=== PATIENT | male | born 1970 | race African-American/Black ===

== ENCOUNTER 2023-04-29 12:49 | Emergency (ER) | payer MEDICARE, SELFPAY ==
[2023-04-29 13:05] VITALS: BP 127/96; PULSE 69; RESP 18; TEMP 36.9; O2SAT 100
[2023-04-29 13:47] LABS: Appearance Urine Cloudy (Clear); Bacteria Urine None Seen /hpf; Bilirubin Urine Negative (Negative); Blood Urine 1+ (Negative); Color Urine Yellow (Yellow); Glucose Urine UA Negative (Negative); Ketones Urine Negative (Negative); Leukocyte Esterase Ur 2+ LEU/UL (Negative); Nitrate Urine Negative (Negative); Non Pathogenic Casts 0-2; Protein Urine Trace mg/dL (Negative); Specific Grav Ur 1.025 (1.001-1.035); Squamous Epithelial Cell Urine None seen /hpf (Few); Urobilinogen Urine 0.2 mg/dL (<2.0); WBC Urine >100 /hpf; pH Urine 5.5 (5.0-9.0)
[2023-04-29 13:54] LABS: Add Urine Microscopic? YES
[2023-04-29 15:14] LABS: Chlamydia trachomatis NOT DETECTED (NOT DETECTE); Neisseria gonorrhoeae PCR DETECTED (NOT DETECTE)
--- NOTE | 2023-04-29 15:28 | ED.GENADULT ---
HPI - General Adult General Chief complaint: Urogenital-Male Stated complaint: STD check Time Seen by Provider: 04/29/23 13:31 Source: patient Mode of arrival: ambulatory Limitations: no limitations History of Present Illness HPI narrative: This is a 52-year-old male who presents to the ED with chief complaint of penile discharge and urinary burning for the last couple of days. Reports he is concerned for STD. He does not know of any positive contacts. Denies abdominal pain, fevers, chills, nausea, vomiting or any further complaint. Denies scrotal complaints. Related Data Allergies Allergy/AdvReac Type Severity Reaction Status Date / Time Penicillins Allergy Unknown Hives Verified 04/29/23 14:39 Review of Systems Review of Systems: All systems as dictated in HPI Exam Narrative: GENERAL: Well-appearing, well-nourished, and in no acute distress. HEAD: Normocephalic, atraumatic. EYES: PERRLA and EOMI. ENT: Nares clear, no rhinorrhea or epistaxis. Mucous membranes moist. Oropharynx without tonsillar hypertrophy exudate or other lesions. NECK: Supple. No adenopathy or masses. CHEST: No respiratory distress. Clear to auscultation. No wheezes rales or rhonchi HEART: Regular rate and rhythm. No murmur heard. Normal peripheral pulses. ABDOMEN: Soft, nontender, nondistended, normal active bowel sounds. MSK: Normal range of motion. No edema. SKIN: Warm, dry, no rash. NEURO: Alert and oriented x3. No focal deficits. PSYCH: Normal mood and affect. exam deferred Course Vital Signs Vital signs: Vital Signs Temperature 98.4 F 04/29/23 13:05 Pulse Rate 69 04/29/23 13:05 Respiratory Rate 18 04/29/23 13:05 Blood Pressure 127/96 H 04/29/23 13:05 Pulse Oximetry 100 04/29/23 13:05 Temperature 98.4 F 04/29/23 13:05 Pulse Rate 69 04/29/23 13:05 Respiratory Rate 18 04/29/23 13:05 Blood Pressure 127/96 H 04/29/23 13:05 Pulse Oximetry 100 04/29/23 13:05 Medical Decision Making [facility] Narrative Medical decision making narrative: This is a 52-year-old male who presents to the ED for chief concern of STD. He has penile discharge and painful urination. Vitals are normal. Exam is intact. UA shows evidence of infection with gonorrhea test positive. Symptoms certainly consistent with gonorrheal infection. He was given Rocephin here in the ED. He was also given prescription for doxycycline for additional coverage although his chlamydia test was negative. Pt will be discharged in stable condition. Return precautions given and supportive measures discussed. Pt is understanding and agreeable with plan for discharge and follow-up with PCP. Vital Signs Vital Signs: Vital Signs Temperature 98.4 F 04/29/23 13:05 Pulse Rate 69 04/29/23 13:05 Respiratory Rate 18 04/29/23 13:05 Blood Pressure 127/96 H 04/29/23 13:05 Pulse Oximetry 100 04/29/23 13:05 Temperature 98.4 F 04/29/23 13:05 Pulse Rate 69 04/29/23 13:05 Respiratory Rate 18 04/29/23 13:05 Blood Pressure 127/96 H 04/29/23 13:05 Pulse Oximetry 100 04/29/23 13:05 Lab Data Labs: Lab Results 04/29/23 Range/Units 13:37 Urine Color Yellow (Yellow) Urine Appearance Cloudy H (Clear) Urine pH 5.5 (5.0-9.0) Ur Specific Yoder 1.025 (1.001-1.035) Urine Protein Trace (Negative) mg/dL Urine Glucose (UA) Negative (Negative) mg/dL Urine Ketones Negative (Negative) mg/dL Ur Blood (Man) 1+ H (Negative) Urine Nitrate Negative (Negative) Urine Bilirubin Negative (Negative) Urine Urobilinogen 0.2 (<2.0) mg/dL Leukocyte Esterase Rfl 2+ H (Negative) VIKTOR/UL Urine RBC 3-5 H (0-2) /hpf Urine WBC >100 H /hpf Ur Squamous Epith Cells None seen (Few) /hpf Urine Bacteria None seen /hpf Urine Casts 0-2 C. trachomatis (PCR) Not detected (NOT DETECTE) N. gonorrhoeae (PCR) Detected A (NOT DETECTE) Discharge Plan Discharge Clinical
[2023-04-29] MEDS: cefTRIAXone 1 GM VIAL 0.5 GM IM (15:33)
[2023-04-29] MEDS: WATER, STERILE FOR INJECTION 10 ML VIAL XX (15:34)
== END 2023-04-29 15:40 | disposition home or self-care (01) ==
PROVIDERS: Emergency Provider Physician Assistant
DX: A54.00 Gonococcal infection of lower genitourinary tract, unspecified (principal); Z20.2 Contact with and (suspected) exposure to infections with a predominantly sexual mode of transmission; R36.9 Urethral discharge, unspecified
CPT/HCPCS: 81001; 87086; 87491; 87591; 96372; 99283; J0696